=== PATIENT | female | born 1970 | race Hispanic/Latino ===

== ENCOUNTER 2017-08-23 21:22 | Inpatient (IN) | payer BC, SELFPAY ==
[~2017-08-23] VITALS: Ht 154.9 cm; Wt 144.0 kg
[2017-08-23 21:43] LABS: APPEARANCE,URINE Clear (CLEAR); BILIRUBIN,URINE Negative (NEGATIVE); COLOR,URINE Yellow (YELLOW); GLUCOSE, URINE (UA) Negative (NEGATIVE); KETONES,URINE 40 mg/dL (NEGATIVE); LEUKOCYTE ESTERASE ,URINE Negative (NEGATIVE); NITRATE,URINE Negative (NEGATIVE); OCCULT BLOOD,URINE Negative (NEGATIVE); PH,URINE 7.5 (5.0-8.0); PROTEIN,URINE Negative (NEGATIVE)
[2017-08-23 22:34] LABS: MEAN CORPUSCULAR HEMOGLOBIN 20.7 pg (27.0-33.0)
[2017-08-23 22:42] LABS: HEMATOCRIT 33.1 % (36-48); MEAN CORPUSCULAR HGB CONC 30.8 g/dL (32.0-36.0); MEAN CORPUSCULAR VOLUME 67.1 fL (79-99); PLATELET COUNT (AUTO) 405 K/uL (130-400); RED BLOOD CELL COUNT(AUTO) 4.93 MIL/uL (4.00-5.50); RED CELL DISTRIBUTION WIDTH 18.8 % (11.0-15.5)
[2017-08-23 22:43] LABS: CREATININE 0.8 mg/dL (0.5-1.5); POTASSIUM 4.2 mmol/L (3.5-5.1)
[2017-08-23 22:47] LABS: ALBUMIN 3.5 g/dL (3.5-5.0); BILIRUBIN,TOTAL 0.5 mg/dL (0.2-1.0); TOTAL PROTEIN, SERUM 8.3 g/dL (6.0-8.3)
[2017-08-23] MEDS ORDERED: ONDANSETRON HCL 4 MG/2 ML VIAL ONE (22:50)
[2017-08-23] MEDS ORDERED: HYDROMORPHONE 1 MG/1 ML AMP ONE (22:51)
[2017-08-23 23:26] LABS: BAND NEUTROPHILS % (MANUAL) 5 % (0-2); EOSINOPHILS % (MANUAL) 2 % (1-6); LYMPHOCYTES % (MANUAL) 11 % (22-44); MAN.DIFF COMMENT-IMPRESSION MANUAL DIFFERENTIAL; MONOCYTES % (MANUAL) 5 % (2-9); REACTIVE LYMPHOCYTES 3 % (0-0); SEGMENTED NEUTROPHILS % 74 % (40-70)
[2017-08-23 23:27] LABS: PLATELET MORPHOLOGY COMMENT ADEQUATE
[2017-08-24] VITALS (28 sets, daily range): BP systolic 119–181; BP diastolic 74–97
[2017-08-24] MEDS ORDERED: SODIUM CHLORIDE 0.9% 1000ML 1,000 ML IV ONE (00:45)
[2017-08-24] MEDS: SODIUM CHLORIDE 0.9% 1000ML 1,000 ML IV SCH ×3 (02:15→18:41)
[2017-08-24] MEDS ORDERED: ONDANSETRON HCL 4 MG/2 ML VIAL IVP PRN (02:15)
[2017-08-24] MEDS ORDERED: ONDANSETRON HCL 4 MG/2 ML VIAL ONE ×2 (02:17→10:09)
[2017-08-24] MEDS ORDERED: MORPHINE SULFATE 2 MG/ML 1ML SYG ONE ×3 (02:17→18:14)
[2017-08-24 04:09] LABS: HEMATOCRIT 31.7 % (36-48); MEAN CORPUSCULAR HEMOGLOBIN 20.5 pg (27.0-33.0); MEAN CORPUSCULAR HGB CONC 30.7 g/dL (32.0-36.0); MEAN CORPUSCULAR VOLUME 66.9 fL (79-99); PLATELET COUNT (AUTO) 458 K/uL (130-400); RED BLOOD CELL COUNT(AUTO) 4.74 MIL/uL (4.00-5.50); RED CELL DISTRIBUTION WIDTH 18.7 % (11.0-15.5); WHITE BLOOD COUNT (AUTO) 14.9 K/uL (4.8-10.8)
[2017-08-24 04:35] LABS: CREATININE 0.6 mg/dL (0.5-1.5)
[2017-08-24] MEDS ORDERED: LACTATED RINGERS 1000ML 1,000 ML IV ONE (09:55)
[2017-08-24] MEDS ORDERED: LIDOCAINE PF 2% 5ML ABBOJECT ONE (10:09)
[2017-08-24] MEDS ORDERED: DEXAMETHASONE SOD PHOSPHATE 10MG/ML 1ML VIAL ONE (10:09)
[2017-08-24] MEDS ORDERED: GLYCOPYRROLATE 0.2 MG/ML 5 ML VIAL ONE (10:09)
[2017-08-24] MEDS ORDERED: MIDAZOLAM HCL 1 MG/ML 2ML VIAL ONE (10:09)
[2017-08-24] MEDS ORDERED: NEOSTIGMINE METHYLSULFATE 1MG/ML IV ONE (10:09)
[2017-08-24] MEDS ORDERED: SUCCINYLCHOLINE 200MG/10ML SYR ONE (10:09)
[2017-08-24] MEDS ORDERED: FENTANYL CITRATE PF 50 MCG/1 ML 2ML VIAL ONE ×3 (10:10→12:02)
[2017-08-24] MEDS ORDERED: PROPOFOL 10 MG/ML 20ML VIAL IV ONE ×2 (10:10→13:43)
[2017-08-24] MEDS: CEFOXITIN SODIUM 2 GM VIAL ONE ×2 (11:10→11:19)
[2017-08-24] MEDS ORDERED: BUPIVACAINE/PF 0.5% 30ML VIAL ONE (11:15)
[2017-08-24] MEDS ORDERED: ROCURONIUM BROMIDE 10MG/1ML 5ML VL ONE (12:25)
[2017-08-24] MEDS ORDERED: FENTANYL CITRATE PF 50 MCG/1 ML 5ML AMP IV ONE (13:22)
[2017-08-24] MEDS ORDERED: OXYTOCIN 10 USP UNITS/ML ONE (13:43)
[2017-08-24] MEDS ORDERED: MEPERIDINE-PF 25 MG/ML SYG ONE (14:43)
[2017-08-24] MEDS ORDERED: CALDOLOR 800MG+NS 250ML 250 ML IV ONE (14:43)
[2017-08-24] MEDS: MORPHINE SULFATE 4 MG/1ML SYG IV PRN ×2 (17:04→18:42)
[2017-08-25] MEDS: SODIUM CHLORIDE 0.9% 1000ML 1,000 ML IV SCH ×3 (02:30→18:33)
[2017-08-25] MEDS ORDERED: MORPHINE SULFATE 2 MG/ML 1ML SYG ONE (03:00)
[2017-08-25 03:37] VITALS: BP 136/74
[2017-08-25 03:45] LABS: MEAN CORPUSCULAR HGB CONC 31.2 g/dL (32.0-36.0); MEAN CORPUSCULAR VOLUME 67.1 fL (79-99); PLATELET COUNT (AUTO) 391 K/uL (130-400); RED BLOOD CELL COUNT(AUTO) 4.17 MIL/uL (4.00-5.50); RED CELL DISTRIBUTION WIDTH 18.9 % (11.0-15.5)
[2017-08-25 04:16] LABS: CREATININE 0.8 mg/dL (0.5-1.5); POTASSIUM 3.9 mmol/L (3.5-5.1)
[2017-08-25 08:00] VITALS: BP 173/91
[2017-08-25] MEDS: MORPHINE SULFATE 4 MG/1ML SYG IV PRN (10:56)
[2017-08-25 11:00] VITALS: BP 145/82
[2017-08-25 16:00] VITALS: BP 176/91
[2017-08-25 20:00] VITALS: BP 147/92
[2017-08-25] MEDS: ACETAMINOPHEN-CODEINE 300/30MG TAB PO PRN (22:13)
[2017-08-26] VITALS: BP 148/76
[2017-08-26] MEDS: SODIUM CHLORIDE 0.9% 1000ML 1,000 ML IV SCH ×3 (02:04→18:38)
[2017-08-26 04:00] VITALS: BP 154/91
[2017-08-26 08:00] VITALS: BP 129/78
[2017-08-26 11:00] VITALS: BP 139/92
[2017-08-26 16:00] VITALS: BP_SYST 118; BP_SYST 133; BP_DIAS 51; BP_DIAS 85
[2017-08-26] MEDS: ACETAMINOPHEN-CODEINE 300/30MG TAB PO PRN ×2 (16:55→23:25)
[2017-08-26 20:00] VITALS: BP 142/88
[2017-08-27] VITALS: BP 150/85
[2017-08-27] MEDS: SODIUM CHLORIDE 0.9% 1000ML 1,000 ML IV SCH (01:01)
[2017-08-27 04:00] VITALS: BP 130/74
[2017-08-27 08:00] VITALS: BP 132/91
[2017-08-27 11:00] VITALS: BP 138/86
[2017-08-27 16:00] VITALS: BP 144/87
[2017-08-27] MEDS: DOCUSATE SODIUM 100 MG CAP PO SCH (19:48)
[2017-08-27 20:00] VITALS: BP 142/77
[2017-08-27] MEDS: ACETAMINOPHEN-CODEINE 300/30MG TAB PO PRN (22:17)
[2017-08-28] VITALS: BP 126/63
[2017-08-28 04:00] VITALS: BP 123/69
[2017-08-28 05:43] LABS: HEMATOCRIT 27.4 % (36-48); MEAN CORPUSCULAR HEMOGLOBIN 21.6 pg (27.0-33.0); MEAN CORPUSCULAR HGB CONC 32.2 g/dL (32.0-36.0); MEAN CORPUSCULAR VOLUME 67.3 fL (79-99); PLATELET COUNT (AUTO) 360 K/uL (130-400); RED BLOOD CELL COUNT(AUTO) 4.08 MIL/uL (4.00-5.50); RED CELL DISTRIBUTION WIDTH 18.9 % (11.0-15.5); WHITE BLOOD COUNT (AUTO) 9.5 K/uL (4.8-10.8)
[2017-08-28 05:52] LABS: CREATININE 0.6 mg/dL (0.5-1.5); POTASSIUM 3.1 mmol/L (3.5-5.1)
[2017-08-28 06:16] LABS: BAND NEUTROPHILS % (MANUAL) 8 % (0-2); BASOPHILS % (MANUAL) 2 % (0-2); EOSINOPHILS % (MANUAL) 9 % (1-6); LYMPHOCYTES % (MANUAL) 9 % (22-44); MAN.DIFF COMMENT-IMPRESSION MANUAL DIFFERENTIAL; MONOCYTES % (MANUAL) 6 % (2-9); SEGMENTED NEUTROPHILS % 66 % (40-70)
[2017-08-28 06:17] LABS: PLATELET MORPHOLOGY COMMENT ADEQUATE
[2017-08-28 08:00] VITALS: BP 136/78
[2017-08-28] MEDS: DOCUSATE SODIUM 100 MG CAP PO SCH (09:29)
[2017-08-28] MEDS: ACETAMINOPHEN-CODEINE 300/30MG TAB PO PRN (13:56)
[2017-08-28] MEDS ORDERED: BISACODYL 10 MG SUPP.RECT RC ONE (14:00)
[2017-08-28 14:07] VITALS: BP 129/86
[2017-08-28] MEDS ORDERED: MAGNESIUM CITRATE 296 ML SOLUTION PO SCH (14:30)
== END 2017-08-28 16:20 | disposition home or self-care (01) | DRG 336 ==
LOC: EDH 21:22 → EDHIP 22:47 → 3AH 08-24 01:44
PROVIDERS: ADMIT Student in an Organized Health Care Education/Training Program; ATTEND Student in an Organized Health Care Education/Training Program
PROC: 0DN80ZZ Release Small Intestine, Open Approach (ICD-10-PCS; 2017-08-24)
PROC: 0DNU0ZZ Release Omentum, Open Approach (ICD-10-PCS; 2017-08-24)
PROC: 0WQF0ZZ Repair Abdominal Wall, Open Approach (ICD-10-PCS; principal; 2017-08-24 11:27)
DX: K43.6 Other and unspecified ventral hernia with obstruction, without gangrene (principal); Z68.44 Body mass index [BMI] 60.0-69.9, adult; E66.9 Obesity, unspecified; Z90.49 Acquired absence of other specified parts of digestive tract; Z98.84 Bariatric surgery status; Z88.8 Allergy status to other drugs, medicaments and biological substances
CPT/HCPCS: 36415; 74176; 80048; 80053; 81003; 82150; 83690; 85025; 85027; 88302; 94002; C1781; J0330; J0694; J1100; J1170; J1741; J2001; J2175; J2250; J2270; J2405; J2590; J2704; J2710; J3010; J3490; J7030; J7120

== ENCOUNTER 2020-05-13 15:34 | Observation (INO) | payer BC, SELFPAY ==
[~2020-05-13] VITALS: Ht 154.9 cm; Wt 135.7 kg
[2020-05-13] MEDS ORDERED: DILTIAZEM HCL 125 MG/25 ML VIAL IV ONE (16:04)
[2020-05-13 16:05] LABS: BASOPHILS % (AUTO) 0.5 % (0.0-5.0); EOSINOPHILS % (AUTO) 1.4 % (0.0-8.0); HEMATOCRIT 33.8 % (36-48); LYMPHOCYTES % (AUTO) 27.9 % (21.0-51.0); MEAN CORPUSCULAR HEMOGLOBIN 17.9 pg (27.0-33.0); MEAN CORPUSCULAR HGB CONC 27.5 g/dL (32.0-36.0); MEAN CORPUSCULAR VOLUME 65.1 fL (79-99); MONOCYTES % (AUTO) 7.6 % (3.0-13.0); NEUTROPHILS % (AUTO) 62.3 % (40.0-77.0); PLATELET COUNT (AUTO) 587 K/uL (130-400); RED BLOOD CELL COUNT(AUTO) 5.19 MIL/uL (4.00-5.50); RED CELL DISTRIBUTION WIDTH 21.5 % (11.0-15.5); WHITE BLOOD COUNT (AUTO) 12.4 K/uL (4.8-10.8)
[2020-05-13 16:15] LABS: CREATININE 0.9 mg/dL (0.5-1.5)
[2020-05-13 16:18] LABS: INR 0.99 (0.85-1.15); PARTIAL THROMBOPLASTIN TIME 26.2 SEC (26.3-35.5); PROTHROMBIN TIME 10.7 SEC (9.6-11.6)
[2020-05-13 16:27] LABS: ALBUMIN 3.7 g/dL (3.5-5.0); BILIRUBIN,TOTAL 0.4 mg/dL (0.2-1.0); MAGNESIUM 1.9 mg/dL (1.80-2.40); THYROID STIMULATING HORMONE 1.15 uIU/mL (0.36-3.74); TOTAL PROTEIN, SERUM 8.5 g/dL (6.0-8.3)
[2020-05-13 17:13] LABS: APPEARANCE,URINE Cloudy (CLEAR); BILIRUBIN,URINE Negative (NEGATIVE); COLOR,URINE Yellow (YELLOW); GLUCOSE, URINE (UA) Negative (NEGATIVE); KETONES,URINE 15 mg/dL (NEGATIVE); LEUKOCYTE ESTERASE ,URINE Negative (NEGATIVE); NITRATE,URINE Negative (NEGATIVE); OCCULT BLOOD,URINE Negative (NEGATIVE); PROTEIN,URINE Trace mg/dL (NEGATIVE)
[2020-05-13 17:21] LABS: AMPHET/METH SCREEN,URINE NEGATIVE (NEGATIVE); BARBITURATE SCREEN, URINE NEGATIVE (NEGATIVE); BENZODIAZEPINES SCREEN,URINE NEGATIVE (NEGATIVE); CANNABINOID SCREEN,URINE NEGATIVE (NEGATIVE); COCAINE SCREEN,URINE NEGATIVE (NEGATIVE); OPIATE SCREEN,URINE NEGATIVE (NEGATIVE); PHENCYCLIDINE SCREEN,URINE NEGATIVE (NEGATIVE)
[2020-05-13 17:22] LABS: RBC,URINE 0-1 /HPF (0-1)
[2020-05-13 17:23] LABS: BACTERIA,URINE Few /HPF (None Seen)
[2020-05-13 17:24] LABS: SQUAMOUS EPITHELIAL CELL,UR Moderate /HPF (0-2)
[2020-05-13] MEDS ORDERED: DILTIAZEM HCL 125 MG/25 ML 125 MG in SODIUM CHLORIDE 0.9% 100 ML IV SCH (21:15)
[2020-05-13] MEDS: SODIUM CHLORIDE 0.9% 1000ML 1,000 ML IV SCH (21:30)
[2020-05-13] MEDS ORDERED: ACETAMINOPHEN 325 MG TAB PO PRN ×2 (21:30)
[2020-05-13] MEDS ORDERED: NITROGLYCERIN 0.4 MG SL TAB SL PRN (21:30)
[2020-05-13] MEDS ORDERED: ONDANSETRON HCL 4 MG/2 ML VIAL IV PRN (21:30)
[2020-05-13] MEDS ORDERED: DIPHENHYDRAMINE HCL 25 MG CAPSULE PO PRN (21:30)
[2020-05-13 23:01] LABS: CREATINE KINASE, TOTAL 34 U/L (21-232); MYOGLOBIN 30 ng/mL (10-92); TROPONIN I < 0.04 ng/mL (0.00-0.06)
[2020-05-14 03:22] VITALS: BP 156/88
--- NOTE | 2020-05-14 04:07 | NUR ---
ADMISSION NOTE: Pt admitted to floor via stretcher from ER. AOX4, fully awake and responsive. Ambulatory. Denies feeling of pain and discomfort. VS checked and recorded. Physical Assessment done. ( See CPOE flow chart for full assessment). Has IV site to RAC # 20 gauge with Cardizem drip at 5mg/hr via pump and NS 1L at the level of approx. 700 ml at 100 ml/hr via dial flow. Attached to TELE at bedside running afib 92. Plan of care initiated. Kept monitored and observed for any unusual changes. Pt has no home meds as verbalized. Oriented to room and use of call light. Policies and procedures explained. Agreed and verbalized understanding. No apparent distress noted. Cared for and needs attended.
[2020-05-14 04:14] LABS: HEMATOCRIT 31.5 % (36-48); MEAN CORPUSCULAR HGB CONC 28.3 g/dL (32.0-36.0); MEAN CORPUSCULAR VOLUME 63.8 fL (79-99); PLATELET COUNT (AUTO) 541 K/uL (130-400); RED BLOOD CELL COUNT(AUTO) 4.94 MIL/uL (4.00-5.50); WHITE BLOOD COUNT (AUTO) 12.3 K/uL (4.8-10.8)
[2020-05-14 04:44] LABS: ALANINE AMINOTRANSFERASE 17 U/L (12-78); ALBUMIN 3.5 g/dL (3.5-5.0); ASPARTATE AMINOTRANSFERASE 19 U/L (10-37); BILIRUBIN,TOTAL 0.5 mg/dL (0.2-1.0); CARBON DIOXIDE 25 mmol/L (21-32); CHLORIDE 103 mmol/L (101-111); CHOLESTEROL 97 mg/dL (<200); CREATINE KINASE, TOTAL 32 U/L (21-232); CREATININE 0.7 mg/dL (0.5-1.5); GLOMERULAR FILTR. RATE CALC 94 mL/min (>60); GLUCOSE,RANDOM 101 mg/dL (70-105); HDL CHOLESTEROL 35 mg/dL (35-85); LDL DIRECT 56 mg/dL (0-99); MYOGLOBIN 32 ng/mL (10-92); POTASSIUM 3.8 mmol/L (3.5-5.1); SODIUM SERUM 137 mmol/L (136-145); TOTAL PROTEIN, SERUM 8.1 g/dL (6.0-8.3); TRIGLYCERIDES 63 mg/dL (30-200); TROPONIN I < 0.04 ng/mL (0.00-0.06); UREA NITROGEN, BLOOD 15 mg/dL (7-18)
[2020-05-14 04:52] LABS: EOSINOPHILS % (MANUAL) 1 % (1-6); LYMPHOCYTES % (MANUAL) 18 % (22-44); MONOCYTES % (MANUAL) 6 % (2-9); SEGMENTED NEUTROPHILS % 75 % (40-70)
[2020-05-14 04:53] LABS: MAN.DIFF COMMENT-IMPRESSION MANUAL DIFFERENTIAL
[2020-05-14 05:59] LABS: % IRON SATURATION 4.3 % (22-44)
--- NOTE | 2020-05-14 07:40 | NUR ---
ASSESSMENT ENCOUNTERED PT A&OX3, CALM COOPERATIVE AND DOES NOT APPEAR TO BE IN ANY DISTRESS NOR ANY NEURO DEFICITS PRESENT. PT DENIES PAIN, SOB, NAUSEA. TELE MONITOR DISPLAYS ATRIAL FIBRILLATION WITH A RATE OF 80-110. PT IS AMBULATORY, GAIT STEADY AND STRONG WITH STAND BY ASSIST. CALL LIGHT WITHIN REACH.
[2020-05-14] MEDS ORDERED: METOPROLOL TARTRATE 25 MG TAB ONE (07:53)
[2020-05-14 08:00] VITALS: BP 146/75
[2020-05-14] MEDS ORDERED: POTASSIUM CHLORIDE 20 MEQ ERTAB PO SCH (08:00)
[2020-05-14] MEDS: SODIUM CHLORIDE 0.9% 1000ML 1,000 ML IV SCH (08:14)
[2020-05-14 08:50] LABS: HEMOGLOBIN A1C 5.6 % (4.0-6.0)
[2020-05-14] MEDS ORDERED: FAMOTIDINE 20MG TAB 20 MG TAB PO SCH (09:00)
[2020-05-14] MEDS ORDERED: ENOXAPARIN SODIUM 40 MG/0.4 ML SYRINGE SQ SCH (09:00)
[2020-05-14] MEDS ORDERED: METOPROLOL TARTRATE 25 MG TAB PO SCH (09:00)
[2020-05-14 12:21] VITALS: BP 122/80
[2020-05-14] MEDS ORDERED: METOPROLOL SUCCINATE 50 MG TAB.SR.24H PO ONE (13:00)
--- NOTE | 2020-05-14 14:14 | NUR ---
LIZZIE HANSEN SPOKE WITH PATIENT ([phone]). PATIENT STATES SHE LIVES AT THE ADDRESS LISTED ON FILE WITH FAMILY. PATIENT STATES SHE IS INDEPENDENT WITH ADLs, NO OTHER DME AVAILABLE AT HOME. PATIENT REQUESTS HER SISTER (LISA AMARO [phone]) BE LISTED NEXT OF KIN/ DECISION MAKER. PATIENT FEELS SAFE GOING HOME POST DC. TENTATIVE DC PLAN IS TO BE DC HOME. SISTER TO TRANSPORT HOME VIA PRIVATE VEHICLE. CM TO FOLLOW UP. Addendum: 05/14/20 at 1420 by KOBI RAMIREZ Amended: Links added.
[2020-05-14 16:00] VITALS: BP 136/86
[2020-05-14] MEDS ORDERED: METOPROLOL SUCCINATE 50 MG TAB.SR.24H PO SCH (17:00)
== END 2020-05-14 18:45 | disposition home or self-care (01) ==
LOC: EDH 15:34 → INTOOBSV 20:20 → EDHIP 20:20 → 4AH 05-14 02:33
PROVIDERS: ADMIT Internal Medicine; ATTEND Internal Medicine
DX: I48.91 Unspecified atrial fibrillation (principal); D50.9 Iron deficiency anemia, unspecified; E66.01 Morbid (severe) obesity due to excess calories; D84.9 Immunodeficiency, unspecified; I48.0 Paroxysmal atrial fibrillation; J44.9 Chronic obstructive pulmonary disease, unspecified; Z68.43 Body mass index [BMI] 50.0-59.9, adult; Z98.84 Bariatric surgery status; Z90.49 Acquired absence of other specified parts of digestive tract
CPT/HCPCS: 36415 ×2; 71045; 80053 ×2; 80061; 80305; 81001; 82270; 82550 ×3; 82728; 83036; 83540; 83550; 83735 ×2; 83874 ×2; 83880; 84443; 84484 ×3; 85025 ×2; 85610; 85730; 93005 ×3; 93306; 93356; 96360; 96361; 96372; 99291; G0378 ×5; J1650; J3490 ×2

== ENCOUNTER → 2020-09-02 | Outpatient (CLI) | payer OTHER | END | disposition home or self-care (01) | LOC: RAH 14:15 | PROVIDERS: ATTEND Internal Medicine Cardiovascular Disease | DX: Z13.6 Encounter for screening for cardiovascular disorders (principal) | CPT/HCPCS: 75571 ==

== ENCOUNTER → 2022-01-13 | Outpatient (CLI) | payer BC | END | disposition home or self-care (01) | LOC: CANPRECLI → SHCH 08:25 | PROVIDERS: ATTEND Internal Medicine Cardiovascular Disease | DX: I50.20 Unspecified systolic (congestive) heart failure (principal); E66.01 Morbid (severe) obesity due to excess calories; I50.22 Chronic systolic (congestive) heart failure | CPT/HCPCS: 93306 ==

== ENCOUNTER → 2022-03-17 | Outpatient (CLI) | payer BC | END | disposition home or self-care (01) | LOC: SHCH 08:26 | PROVIDERS: ATTEND Internal Medicine Cardiovascular Disease | DX: I87.2 Venous insufficiency (chronic) (peripheral) (principal) | CPT/HCPCS: 93970 ==

== ENCOUNTER → 2023-01-30 | Outpatient (CLI) | payer BC | END | disposition home or self-care (01) | LOC: LAB 10:27 | PROVIDERS: ATTEND Internal Medicine Cardiovascular Disease | DX: I48.0 Paroxysmal atrial fibrillation (principal) | CPT/HCPCS: 36415; 83880 ==

== ENCOUNTER → 2023-03-20 | Outpatient (CLI) | payer BC | END | disposition home or self-care (01) | LOC: SHCH 08:05 | PROVIDERS: ATTEND Internal Medicine Cardiovascular Disease | DX: I51.7 Cardiomegaly (principal); I48.0 Paroxysmal atrial fibrillation; I51.89 Other ill-defined heart diseases | CPT/HCPCS: 93306 ==

== ENCOUNTER 2025-04-18 09:19 | Day surgery (SDC) | payer BC ==
[2025-04-16 09:47] VITALS: BP 146/74; PULSE 85; RESP 14; TEMP 97.2
[2025-04-16 09:55] LABS: CREATININE 0.9 mg/dL (0.5-1.0); GLOMERULAR FILTR. RATE CALC 75.0 mL/min (>90); GLUCOSE,RANDOM 102.0 mg/dL (70-105); SODIUM SERUM 138.0 mmol/L (136-145); UREA NITROGEN, BLOOD 12.0 mg/dL (7-18)
[2025-04-16 11:48] LABS: IMMATURE GRANULOCYTE ABSOLUTE 0.07 K/uL (0-1); NUCLEATED RED BLOOD CELLS 0.0 % (0.0-0.19); PLATELET COUNT (AUTO) 330 K/uL (130-400); RED BLOOD CELL COUNT(AUTO) 4.31 MIL/uL (4.00-5.50); RED CELL DISTRIBUTION WIDTH 14.5 % (11.0-15.5); WHITE BLOOD COUNT (AUTO) 9.4 K/uL (4.8-10.8)
[~2025-04-18] VITALS: Ht 154.9 cm; Wt 144.9 kg
[~2025-04-18 09:19] MED LIST: APIX5TAB PO; DRON400T7 PO; METO-409 PO
[2025-04-18 09:55] VITALS: BP 127/75; PULSE 90; RESP 20; TEMP 97.9
--- NOTE | 2025-04-18 11:45 | EKG ---
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
[2025-04-18 12:05] VITALS: BP 131/70; PULSE 59; RESP 15; TEMP 97.7
--- NOTE | 2025-04-18 12:17 | PRN ---
Procedure Note Date of procedure: 04/18/2025 Diagnosis: Persistent atrial fibrillation Procedure: Cardioversion Physician: Konstantin Carlisle MD The patient was brought to the day patient area in a fasting state. Anesthesia was provided by the anesthesia service. Cardioversion was performed with a synchronized shock at 200 joules resulting in sinus rhythm. The patient tolerated the procedure well. Final diagnosis: Persistent atrial fibrillation, status post successful cardi oversion Disposition: The patient will be discharged later today and will follow up with me in the office in approximately two weeks. KONSTANTIN CARLISLE MD Apr 18, 2025 12:17
[2025-04-18 12:20] VITALS: BP 131/72; PULSE 58; RESP 15
[2025-04-18 12:35] VITALS: BP 124/64; PULSE 58; RESP 14
--- NOTE | 2025-04-18 12:50 | NUR ---
BOTH PT AND FRIEND GIVEN VERBAL AND WRITTEN DISCHARGE INSTRUCTIONS. IV REMOVED SITE ASYMPTOMATIC. PT TAKEN OUT VIA WHEELCHAIR FRIEND DRIVING.
[2025-04-18 12:55] VITALS: BP 134/68; PULSE 59; RESP 14
--- NOTE | 2025-04-19 16:58 | EKG ---
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
== END 2025-04-18 13:10 | disposition home or self-care (01) ==
LOC: DAH 09:19
PROVIDERS: ATTEND Internal Medicine Cardiovascular Disease
DX: I48.19 Other persistent atrial fibrillation (principal); I48.0 Paroxysmal atrial fibrillation; Z79.01 Long term (current) use of anticoagulants; Z88.6 Allergy status to analgesic agent; Z98.84 Bariatric surgery status; Z90.49 Acquired absence of other specified parts of digestive tract; Z79.899 Other long term (current) drug therapy
CPT/HCPCS: 80048; 84703; 85025; 36415; 92960; 93005 ×2; J2704; J3490; A4620; A4215; A4222; A4221; A4663; A4216; A4606; A4223 ×3

== ENCOUNTER 2025-04-28 01:38 | Emergency (ER) | payer BC ==
[~2025-04-28] VITALS: Ht 154.9 cm; Wt 142.9 kg
--- NOTE | 2025-04-28 01:58 | ERN ---
ED Note History of Present Illness Stated Complaint: ABD PAIN,NAUSEA Chief Complaint: Abdominal Pain Time Seen by MD: 01:41 Dictation: This is a 54-year-old extremely obese female who presents to the emergency room with complaints of lower abdominal pain nausea and dry mouth starting yesterday. She denied any vomitings. No fever chills or rigors. No chest pain pressure PND orthopnea. She had cardioversion on 04/18/[address] Uribe and patient reverted back to AFib on 04/22/2025. She has been on Eliquis for the atrial fibrillation. Patient stated that she had gastric bypass surgery in 2003 and lost about 100 lb however she regained all the weight over the years. She stated that she also went on GLP 1 agents and lost about 65 lb however the insurance did not cover Ozempic or Mounjaro. Temperature 98.6 pulse 104 respirations 20 blood pressure 154/101 pulse oximetry 98% on room air Allergies: Coded Allergies: aspirin (Unverified Allergy, Unknown, 08/24/17) Home Meds Active Scripts Acetaminophen with Codeine (Acetaminophen-Cod #3 Tablet) 300 Mg-30 Mg Tablet, 1 TAB PO [id number] PRN for pain for 7 Days, #14 TAB 0 Refills Prov:ESTELLA VERA MD 04/28/25 Reported Medications Apixaban (Eliquis) 5 Mg Tablet, 5 MG PO BID, TAB 04/16/25 Dronedarone Hydrochloride (Multaq) 400 Mg Tablet, 400 MG PO BID, TAB 04/16/25 Metoprolol Succinate (Metoprolol Succinate) 100 Mg Tab.er.24h, 100 MG PO BID, TAB 04/16/25 Past Medical History Past Medical History: A-Fib Surgical History: Cholecystectomy, Other, Bariatric Surgery Surgical History Other: Ventral hernia repair, gastric bypass surgery in 2003 Family History: Negative Social History: Negative History: Not Applicable RN Note Reviewed/Agreed w/PFSH: Yes Review of System Dictation Constitutional: Negative for fever,chills, and weight loss Eyes: Negative for injury, pain,redness, and discharge ENT: Negative for injury,pain or swelling Cardiovascular: Negative for chest pain, palpitations, and edema Respiratory: Negative for shortness of breath, cough, and wheezing, Abdomen/GI: Positive for abdominal pain, nausea, denied vomiting, diarrhea, and constipation Back: Negative for injury and pain : Negative for injury, bleeding and discharge MS/Extremity: Negative for injury and deformity Skin: Negative for rash, and discoloration Neuro: Negative for headache, weakness, numbness, tingling, and seizure Psych: Negative for suicide ideation, homicidal ideation, and hallucinations Initial Vital Sign VS Vital Signs Date Time Temp Pulse Resp B/P (MAP) Pulse Ox O2 Delivery O2 Flow Rate FiO2 04/28/25 01:39 96.6 104 20 154/101 97 Room Air 04/28/25 02:04 0 21 Physical Exam Dictation General: awake, alert, NAD morbidly obese with a BMI of 60 Head/Face: Normocephalic, atraumatic Eyes: PERRL, EOMI, vision at baseline ENT: oral cavity clear, TMs clear, no signs of infection Neck: Trachea midline, supple, no nuchal rigidity Cardiovascular: RRR, normal S1/S2, No MRGs, no JVD Respiratory: CTAB, no respiratory distress, No rales or wheezes Abdomen: Soft, non-tender, very obese non-distended, normal bowel sounds, no guarding or rebound. Skin: Warm, dry, normal turgor, no rash MS/Extremity: Pulses equal, no cyanosis, neurovascular intact, FROM Neuro: COAx4, GCS 15, strength 5/5, CN 2-12 intact, normal cerebellar exam, normal gait, Psych: Normal behavior, mood, and affect normal Extremities-trace edema without any palpable cords, Homans sign is negative Results (Laboratory/Radiology) Laboratory/Radiology Laboratory Tests Test 04/28/25 02:02 04/28/25 04:17 White Blood Count 15.7 K/uL (4.8-10.8) H Red Blood Count 4.51 MIL/uL (4.00-5.50) Hemoglobin 12.3 g/dL (12.0-16.0) Hematocrit 39.3 % (36-48) Mean Corpuscular Volume 87.1 fL (79-99) Mean Corpuscular Hemoglobin 27.3 pg (27.0-33.0) Mean Corpuscular Hemoglobin Concent 31.3 g/dL (32.0-36.0) L Red Cell Distribution Width 14.2 % (11.0-15.5) Platelet Count 326 K/uL (130-400) Mean Platelet Volume 9.7 fL (7.5-10.5) Immature Granulocyte % (Auto) 0.5 % (0-1) Neutrophils (%) (Auto) 84.0 % (40.0-77.0) H Lymphocytes (%) (Auto) 10.7 % (21.0-51.0) L Monocytes (%) (Auto) 4.1 % (3.0-13.0) Eosinophils (%) (Auto) 0.3 % (0.0-8.0) Basophils (%) (Auto) 0.4 % (0.0-5.0) Neutrophils # (Auto) 13.2 K/uL (1.8-7.7) H Lymphocytes # (Auto) 1.7 K/uL (1.0-4.8) Monocytes # (Auto) 0.7 K/uL (0.1-1.0) Eosinophils # (Auto) 0.05 K/uL (0.00-0.70) Basophils # (Auto) 0.06 K/uL (0.00-0.20) Absolute Immature Granulocyte (auto 0.08 K/uL (0-1) Nucleated Red Blood Cells 0.0 % (0.0-0.19) Sodium Level 138 mmol/L (136-145) Potassium Level 4.4 mmol/L (3.5-5.1) Chloride Level 102 mmol/L (101-111) Carbon Dioxide Level 27 mmol/L (21-32) Blood Urea Nitrogen 17 mg/dL (7-18) Creatinine 1.0 mg/dL (0.5-1.0) Glomerular Filtration Rate Calc 66 mL/min (>90) Random Glucose 154 mg/dL (70-105) H Total Calcium 9.2 mg/dL (8.5-10.1) Total Creatine Kinase 26 U/L (21-232) Troponin I High Sensitivity < 4.0 ng/L (4-50) L Lipase 32 U/L (16-77) Urine Color LIGHT-YELLOW (YELLOW) Urine Appearance CLEAR (CLEAR) Urine pH 6.5 (5.0-8.0) Urine Specific [place] 1.012 (1.001-1.031) Urine Protein NEGATIVE mg/dL (NEGATIVE) Urine Glucose (UA) NEGATIVE mg/dL (NEGATIVE) Urine Ketones NEGATIVE mg/dL (NEGATIVE) Urine Occult Blood NEGATIVE (NEGATIVE) Urine Nitrate NEGATIVE (NEGATIVE) Urine Bilirubin NEGATIVE mg/dL (NEGATIVE) Urine Urobilinogen 0.2 mg/dL (0.2-1.0) Urine Leukocyte Esterase NEGATIVE Raj/uL Labs Reviewed?: Yes EKG Comment: Twelve lead EKG done on 04/28/2025 at 1:42 a.m. shows a heart rate of 111, QRS 80, QT/QTC 278/379 Atrial fibrillation with a rates of around 111, overall low voltage with nonspecific ST-T changes. No acute ST-T elevations or deep ST depressions noted. EKG rhythm strip shows AFib with rates around 100-112 Interpreted by ER MD Dr. Vera CT Scan Comment: EXAM: CT Abdomen and Pelvis without IV contrast CLINICAL HISTORY: Pain. TECHNIQUE: Thin collimated axial CT images of the abdomen and pelvis were obtained, with sagittal and coronal reformatted images also submitted. A CT scan is done according to ALARA (As Low As Reasonably Achievable). CONTRAST: None. COMPARISON: CT abdomen pelvis dated 08/23/2018. FINDINGS: The included lungs are clear. 0.9 cm node around the right paracardiac region. No focal abnormality within the liver, pancreas, spleen, or adrenals. Status post cholecystectomy. Nonobstructive renal calculi bilaterally, the largest measures up to 0.7 cm around the left renal lower pole. No ureteral calculus or hydronephrosis bilaterally. Unremarkable urinary bladder. Grossly unremarkable uterus and ovaries. Small hiatus hernia. Status post gastric bypass. Uncomplicated sigmoid diverticula. Postsurgical changes in the ventral wall with questionable bowel adhesion around the umbilical area with mildly dilated proximal small bowel loops, measuring up to 3.8 cm in diameter, concerning bowel obstruction. Unremarkable appendix. Limited evaluation of the abdominal vessels due to the lack of intravenous contrast. No abdominal aortic aneurysm is evident. No pathological lymphadenopathy in the abdomen or pelvis. No ascites or pneumoperitoneum. No acute bony abnormality is evident. Degenerative osseous changes. IMPRESSIONS: Postsurgical changes in the ventral wall with questionable bowel adhesion around the umbilical area, with mildly dilated proximal small bowel loops, measuring up to 3.8 cm in diameter, concerning bowel obstruction. Recommended barium follow-through study for further evaluation. Uncomplicated sigmoid diverticula. Status post gastric bypass. Small hiatus hernia. Nonobstructive renal calculi bilaterally. Interval improvement in the previously noted umbilical hernia. The bowel dilatation is less pronounced in the present CT compared to the previous CT dated 08/23/2018. /[place] DICTATED BY: JOSS WOODY Jr., MD DATE: 04/28/25 0532 ELECTRONICALLY SIGNED BY: DATE: EXAM: CT Abdomen and Pelvis without IV contrast CLINICAL HISTORY: Pain. TECHNIQUE: Thin collimated axial CT images of the abdomen and pelvis were obtained, with sagittal and coronal reformatted images also submitted. A CT scan is done according to ALARA (As Low As Reasonably Achievable). CONTRAST: None. COMPARISON: CT abdomen pelvis dated 08/23/2018. FINDINGS: The included lungs are clear. 0.9 cm node around the right paracardiac region. No focal abnormality within the liver, pancreas, spleen, or adrenals. Status post cholecystectomy. Nonobstructive renal calculi bilaterally, the largest measures up to 0.7 cm around the left renal lower pole. No ureteral calculus or hydronephrosis bilaterally. Unremarkable urinary bladder. Grossly unremarkable uterus and ovaries. Small hiatus hernia. Status post gastric bypass. Uncomplicated sigmoid diverticula. Postsurgical changes in the ventral wall with questionable bowel adhesion around the umbilical area with mildly dilated proximal small bowel loops, measuring up to 3.8 cm in diameter, concerning bowel obstruction. Unremarkable appendix. Limited evaluation of the abdominal vessels due to the lack of intravenous contrast. No abdominal aortic aneurysm is evident. No pathological lymphadenopathy in the abdomen or pelvis. No ascites or pneumoperitoneum. No acute bony abnormality is evident. Degenerative osseous changes. IMPRESSIONS: Postsurgical changes in the ventral wall with questionable bowel adhesion around the umbilical area, with mildly dilated proximal small bowel loops, measuring up to 3.8 cm in diameter, concerning bowel obstruction. Recommended barium follow-through study for further evaluation. Uncomplicated sigmoid diverticula. Status post gastric bypass. Small hiatus hernia. Nonobstructive renal calculi bilaterally. Interval improvement in the previously noted umbilical hernia. The bowel dilatation is less pronounced in the present CT compared to the previous CT dated 08/23/2018. /[place] DICTATED BY: JOSS WOODY Jr., MD DATE: 04/28/25521 ELECTRONICALLY SIGNED BY: JOSS WOODY Jr., MD DATE: 04/28/25521 ED Course ED Course Orders Procedure Category Date Status Time Cardiac Panel LAB 04/28/25 Complete 01:52 Cbc With Differential LAB 04/28/25 Complete 01:52 Basic Metabolic Panel LAB 04/28/25 Complete 01:52 Urinalysis Profile LAB 04/28/25 Complete 01:52 Ondansetron 4mg Inj PHA 04/28/25 Complete (Zofran 4mg Inj) 02:00 Pantoprazole 40mg Inj PHA 04/28/25 Complete (Protonix 40mg Inj 02:00 Chest 1vw RAD 04/28/25 Resulted 01:52 Lipase LAB 04/28/25 Complete 01:52 Morphine 4mg Syg PHA 04/28/25 Complete (Morphine 4mg Syg) 02:00 Ct Abdomen/Pelvis W/O CT 04/28/25 Resulted Contrast 01:58 Acetaminophen 325 Tab PHA 04/28/25 Complete (Tylenol 325mg Tab 02:30 12 Lead Ekg Tracing- EKG 04/28/25 Complete Technical 04:14 Current Medications Medications (Trade) Dose Ordered Sig/[place] Route PRN Reason Start Time Stop Time Status Last Admin Dose Admin Acetaminophen (TYLenol 325MG TAB) 650 mg ONCE ONCE PO 04/28/25 02:30 04/28/25 02:31 DC 04/28/25 02:19 Morphine Sulfate (morPHINE 4MG SYG) 4 mg ONCE ONCE IVP 04/28/25 02:00 04/28/25 02:01 DC Ondansetron HCl (zoFRAN 4MG INJ) 4 mg ONCE ONCE IVP 04/28/25 02:00 04/28/25 02:01 DC 04/28/25 02:18 Pantoprazole Sodium (PROTonix 40MG INJ) 40 mg ONCE ONCE IVP 04/28/25 02:00 04/28/25 02:01 DC 04/28/25 02:18 Vital Signs Date Time Temp Pulse Resp B/P (MAP) Pulse Ox O2 Delivery O2 Flow Rate FiO2 04/28/25 04:34 93 20 153/85 100 Room Air* 0 04/28/25 02:04 96.6 104 12 157/86 96 Room Air* 0 04/28/25 01:39 96.6 104 20 154/101 97 Room Air We will perform diagnostic labs, advanced imaging and administer medications according to the patient's complaint. Once the results are available, will review and personally interpreted the labs to rule out any acute life- threatening emergency the trach require immediate intervention and treatment. I will then re-evaluate the patient after treatment and diagnostic exams have return to determine whether the patient requires any further testing, can safely be discharged home or need further admission to hospital for additional treatment and evaluation. 5:00 a.m. upon re-evaluation patient is symptom-free vital signs are stable she would like to pursue the barium study as outpatient with the primary care rosi schilling Medical Decision Making MDM Differential diagnosis: Constipation, diverticulitis, gastroenteritis, adhesions, SBO This is a 54-year-old extremely obese female who presents to the emergency room with complaints of lower abdominal pain nausea and dry mouth starting yesterday. She denied any vomitings. No fever chills or rigors. No chest pain pressure PND orthopnea. She had cardioversion on 04/18/[address] Uribe and patient reverted back to AFib on 04/22/2025. She has been on Eliquis for the atrial fibrillation. Patient stated that she had gastric bypass surgery in 2003 and lost about 100 lb however she regained all the weight over the years. She stated that she also went on GLP 1 agents and lost about 65 lb however the insurance did not cover Ozempic or Mounjaro. Temperature 98.6 pulse 104 respirations 20 blood pressure 154/101 pulse oximetry 98% on room air 4:00 a.m. Labs reviewed. CBC showed a white count of 15.7 hemoglobin 12.3 hematocrit 322. BNP 7 is with a normal limits troponins are negative lipase 32. Chest x-ray is unremarkable for any acute infiltrates. CT scan of the abdomen and pelvis is pending 5:[address] scan of the abdomen and pelvis finally reported. Postsurgical changes of gastric bypass noted, postsurgical changes of ventral hernia repair are also noted. And there was a questionable small bowel obstruction with a an adhesion. I updated the patient and her about the CT scan findings and recommendations to pursue barium swallow study. Patient stated that she felt so much better that she has had similar cramping before which usually goes away in a day and she adamantly refused to stay in the hospital and stated that she would follow up with her physician to pursue outpat ient study. I did mention to her that pain medication may mask serious complications many times which could delay the care. She stated that she felt so much better that she would return if there is any recurrence of pain. Rationale: Tests considered and ordered secondary to shared decision making include: Previous outside records reviewed: Old ER visits. Risk of complication and/or morbidity or mortality of patient management: None Medications-Per medication reconciliation Need for hospitalization: Patient does not meet criteria for hospitalization. Need for emergency major/minor surgery: No There are no social concerns with this patient. Prescription drug management Prescriptions will include symptomatic care Patient's prior external medical records from other ER visits were reviewed by me as indicated. Prior testing and results from previous visits were reviewed. Prior tests were taken into account with medical decision making and resource utilization, independent historian/historians were used to obtain complete medical history. I independently interpreted the test that were performed, results were reviewed by me and considered findings on radiology if ordered. Medical management and examination interpretation discussions were had by me with other qualified healthcare professionals as indicated for the patient's care. DX & DISP Disposition: Discharge Departure Impression: Primary Impression: SBO (small bowel obstruction) Additional Impressions: Morbid obesity with BMI of 50.0-59.9, adult, Microcytic hypochromic anemia Condition: Stable Scripts Acetaminophen with Codeine (Acetaminophen-Cod #3 Tablet) 300 Mg-30 Mg Tablet 1 TAB PO [id number] PRN for pain for 7 Days, #14 TAB 0 Refills Prov: ESTELLA VERA MD 04/28/25 Additional Instructions: Patient and the caregiver have been informed of all the diagnostic tests and the imaging conducted during the today's visit to the emergency room and has verbalized understanding of the results I have personally reviewed and interpreted all diagnostic exams performed here in the ER today as well as the vital signs documented by the nursing staff. The patient is now being discharged to home and should follow up with the primary care physician or the specialist as directed by the ER staff. Follow-up with primary care provider in 1 to 2 days. Take medications as directed here in the emergency room. Okay to continue home medications unless otherwise discussed during your visit in the emergency room today. Return to your nearest emergency room if symptoms worsen or if there is no improvement. Call 911 if you need immediate assistance. Take Tylenol or Motrin [id number] as needed and if no contraindications are present. Increase oral hydration. A wound culture or urine culture was ordered here in the emergency room department please follow-up with primary care provider and advise them to get repeat ports from our facility. If you had any Daniel wrap/splints that were applied here, please do not remove them until you see your primary care or specialty. Referrals: PEDRO LUA MD (PCP) ESTELLA VERA MD Apr 28, 2025 01:58
[2025-04-28 02:14] LABS: IMMATURE GRANULOCYTE ABSOLUTE 0.08 K/uL (0-1); NUCLEATED RED BLOOD CELLS 0.0 % (0.0-0.19); PLATELET COUNT (AUTO) 326 K/uL (130-400); RED BLOOD CELL COUNT(AUTO) 4.51 MIL/uL (4.00-5.50); RED CELL DISTRIBUTION WIDTH 14.2 % (11.0-15.5); WHITE BLOOD COUNT (AUTO) 15.7 K/uL (4.8-10.8)
[2025-04-28 02:25] LABS: CREATININE 1.0 mg/dL (0.5-1.0); GLOMERULAR FILTR. RATE CALC 66 mL/min (>90); GLUCOSE,RANDOM 154 mg/dL (70-105); SODIUM SERUM 138 mmol/L (136-145); UREA NITROGEN, BLOOD 17 mg/dL (7-18)
[2025-04-28 02:35] LABS: CREATINE KINASE, TOTAL 26 U/L (21-232)
--- NOTE | 2025-04-28 04:13 | HMCIMG ---
EXAM: CR Chest, 1 view CLINICAL HISTORY: Afebrile. COMPARISON: Chest radiograph dated 05/13/2020. FINDINGS: The lungs show no infiltrates or other acute findings. No pleural effusion or pneumothorax. The cardiomediastinal silhouette is within normal limits. No acute osseous abnormality. IMPRESSION: No acute cardiopulmonary process is evident. Compared to the prior study, there is no significant interval change. /[place]
--- NOTE | 2025-04-28 04:19 | EKG ---
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1970 Requested By: ESTELLA LAIRD Order Number: [id number] Reading MD: Caroline Georges Measurements Intervals [place] Rate: 111 P: 0 MD: 0 QRS: 8 QRSD: 80 T: 180 QT: 278 QTc: 379 Interpretive Statements Atrial fibrillation with rapid ventricular rate Low voltage, precordial leads Nonspecific T abnrm, anterolateral leads Compared to ECG 04/18/2025 11:53:09 Low QRS voltage now present Sinus bradycardia no longer present Myocardial infarct finding no longer present Electronically Signed On 04-28-2025 08:31:43 CDT by Caroline Georges Please click the below link to view image of tracing.
--- NOTE | 2025-04-28 04:23 | HMCIMG ---
EXAM: CT Abdomen and Pelvis without IV contrast CLINICAL HISTORY: Pain. TECHNIQUE: Thin collimated axial CT images of the abdomen and pelvis were obtained, with sagittal and coronal reformatted images also submitted. A CT scan is done according to ALARA (As Low As Reasonably Achievable). CONTRAST: None. COMPARISON: CT abdomen pelvis dated 08/23/2018. FINDINGS: The included lungs are clear. 0.9 cm node around the right paracardiac region. No focal abnormality within the liver, pancreas, spleen, or adrenals. Status post cholecystectomy. Nonobstructive renal calculi bilaterally, the largest measures up to 0.7 cm around the left renal lower pole. No ureteral calculus or hydronephrosis bilaterally. Unremarkable urinary bladder. Grossly unremarkable uterus and ovaries. Small hiatus hernia. Status post gastric bypass. Uncomplicated sigmoid diverticula. Postsurgical changes in the ventral wall with questionable bowel adhesion around the umbilical area with mildly dilated proximal small bowel loops, measuring up to 3.8 cm in diameter, concerning bowel obstruction. Unremarkable appendix. Limited evaluation of the abdominal vessels due to the lack of intravenous contrast. No abdominal aortic aneurysm is evident. No pathological lymphadenopathy in the abdomen or pelvis. No ascites or pneumoperitoneum. No acute bony abnormality is evident. Degenerative osseous changes. IMPRESSIONS: Postsurgical changes in the ventral wall with questionable bowel adhesion around the umbilical area, with mildly dilated proximal small bowel loops, measuring up to 3.8 cm in diameter, concerning bowel obstruction. Recommended barium follow-through study for further evaluation. Uncomplicated sigmoid diverticula. Status post gastric bypass. Small hiatus hernia. Nonobstructive renal calculi bilaterally. Interval improvement in the previously noted umbilical hernia. The bowel dilatation is less pronounced in the present CT compared to the previous CT dated 08/23/2018. /Clyde
[2025-04-28 04:33] LABS: APPEARANCE,URINE CLEAR (CLEAR); GLUCOSE, URINE (UA) NEGATIVE (NEGATIVE); LEUKOCYTE ESTERASE ,URINE NEGATIVE Leu/uL (NEGATIVE); NITRATE,URINE NEGATIVE (NEGATIVE); OCCULT BLOOD,URINE NEGATIVE (NEGATIVE)
[2025-04-28 04:36] LABS: ADD UA MICROSCOPIC NO
[2025-04-28] MEDS ORDERED: ACET-2079 PO (05:01)
[2025-04-28 05:06] VITALS: BP 130/86; PULSE 90; RESP 17; TEMP 97.3; O2SAT 100
== END 2025-04-28 05:15 | disposition home or self-care (01) ==
LOC: EDH 01:38
DX: K56.609 Unspecified intestinal obstruction, unspecified as to partial versus complete obstruction (principal); E66.01 Morbid (severe) obesity due to excess calories; D50.9 Iron deficiency anemia, unspecified; I48.91 Unspecified atrial fibrillation; Z68.43 Body mass index [BMI] 50.0-59.9, adult; Z79.01 Long term (current) use of anticoagulants; Z79.899 Other long term (current) drug therapy; Z88.6 Allergy status to analgesic agent; Z90.49 Acquired absence of other specified parts of digestive tract; Z98.84 Bariatric surgery status
CPT/HCPCS: 99284; 74176; 96374; 71045; 96375; 82550; 84484; 80048; 83690; 85025; 81003; 36415; 93005; J2405; J2470

== ENCOUNTER 2025-05-21 08:04 | Inpatient (IN) | payer BC ==
[~2025-05-21] VITALS: Ht 154.9 cm; Wt 142.7 kg
[~2025-05-21 08:04] MED LIST changes: +ACET-2079 PO
[2025-05-21 08:53] LABS: NUCLEATED RED BLOOD CELLS 0.0 % (0.0-0.19); PLATELET COUNT (AUTO) 333 K/uL (130-400); RED BLOOD CELL COUNT(AUTO) 4.51 MIL/uL (4.00-5.50); RED CELL DISTRIBUTION WIDTH 13.9 % (11.0-15.5); WHITE BLOOD COUNT (AUTO) 9.2 K/uL (4.8-10.8)
--- NOTE | 2025-05-21 09:04 | EKG ---
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
[2025-05-21 09:15] LABS: ASPARTATE AMINOTRANSFERASE 22.0 U/L (10-37); CREATININE 0.8 mg/dL (0.5-1.0); GLOMERULAR FILTR. RATE CALC 86.0 mL/min (>90); GLUCOSE,RANDOM 96.0 mg/dL (70-105); SODIUM SERUM 140.0 mmol/L (136-145); TOTAL PROTEIN, SERUM 7.3 g/dL (6.0-8.3); UREA NITROGEN, BLOOD 13.0 mg/dL (7-18)
[2025-05-21 11:42] LABS: EOSINOPHILS % (MANUAL) 2 % (1-6); LYMPHOCYTES % (MANUAL) 31 % (22-44); MONOCYTES % (MANUAL) 5 % (2-9); REACTIVE LYMPHOCYTES 1 % (0-0); SEGMENTED NEUTROPHILS % 61 % (40-70)
[2025-05-21 11:44] LABS: MAN.DIFF COMMENT-IMPRESSION MANUAL DIFFERENTIAL; PLATELET MORPHOLOGY COMMENT ADEQUATE
--- NOTE | 2025-05-21 16:27 | NUR ---
DCP: HOME Pt currently lives with her sister Shawanda Arellano [phone]. Pt does not have DME, home health, or provider services. pt states that she is able to complete ADLs independently. PCP is Dr. Dubon and uses [facility] for any RX needs. At [place] pt will want to go home and family can assist with transportation. Addendum: 05/21/25 at 1630 by JARED PACHECO SS Amended: Links added.
[2025-05-22] VITALS (11 sets, daily range): BP systolic 111–164; BP diastolic 77–89; PULSE 86–108; RESP 18–20; TEMP 97.5–98.3; O2SAT 98–100
--- NOTE | 2025-05-22 00:59 | NUR ---
report given to marlena grace
--- NOTE | 2025-05-22 01:00 | NUR ---
ADMISSION PATIENT RECEIVED. ORIENTED PATIENT TO ROOM AND CALL LIGHT. BED PLACED IN LOWEST POSITION AND LOCKED. PATIENT AWAKE AND ORIENTED TO SELF, TIME, PLACE AND SITUATION.
[2025-05-22] MEDS: DOFETILIDE 250 MCG CAPSULE PO ONE (13:00)
--- NOTE | 2025-05-22 16:16 | EKG ---
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
[2025-05-23] VITALS (8 sets, daily range): BP systolic 120–141; BP diastolic 64–76; PULSE 58–93; RESP 16–18; TEMP 97.4–98.1; O2SAT 98–99
[2025-05-23] MEDS: DOFETILIDE 250 MCG CAPSULE PO ONE ×2 (00:36→10:00)
--- NOTE | 2025-05-23 09:08 | EKG ---
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
--- NOTE | 2025-05-23 09:34 | EKG ---
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
--- NOTE | 2025-05-23 10:35 | NUR ---
TAISHA FROM THE [facility] CALLED ME AND STATED THAT PATIENT HAVING EPISODES OF BRADYCARDIA, WITH HEART RATE IN THE 40'S TO LOW 50'S. I OBSERVED PATIENT WHO VOICED NO COMPLAINTS OF PAIN, DIZZINESS, FATIGUE, SYNCOPE, AND WAS SITTING COMFORTABLY IN CHAIR WITH CHAIR ALARM SET. I EXPLAINED TO HER THAT HER HEART RATE IS CURRENTLY LOW BUT BEING MONITORED CONTINUOUSLY. BLOOD PRESSURE EVALUATED: 128/75MMHG, PULSE AT BEDSIDE IS NOW 59-61, AND OXYGEN SATURATION IS 98% ON ROOM AIR. I ASSISTED HER TO BED AND PLACED BED ALARM ON. I HAD HER REPEAT BACK SIGNS AND SYMPTOMS OF BRADYCARDIA AND INSTRUCTED HER TO CALL STAFF FOR ASSISTANCE OR IF ANY OF THE AFOREMENTIONED SIGNS/SYMPTOMS OCCUR. SHE VOICED UNDERSTANDING AND ABLE TO REPEAT BACK ALL TEACHING. CALL IBANEZ PLACED ON RIGHT SIDE AND NEXT TO RIGHT HAND AND SHE SHOWED ME HOW TO USE IT SUCCESSFULLY.
--- NOTE | 2025-05-23 10:45 | NUR ---
I RE-EVALUATED PATIENT AGAIN. VOICES NO S/S OF BRADYCARDIA ( DISCUSSED IN PREVIOUS NOTE: REFER TO THAT) SHE STATES "I FEEL FINE AND I AM GLAD WE ARE HOLDING OFF ON THAT MEDICATION, I WOULD NOT HAVE FELT RIGHT TAKING IT." NURSE WILL CONTINUE TO MONITOR AND FOLLOW UP ON PATIENT'S STATUS.
--- NOTE | 2025-05-23 11:00 | NUR ---
AFTER SPEAKING WITH [facility] MONITORING SOFTWARE ARCHITECT, AMPARO SUMNERBRIANNE'S HEART RATE CURRENTLY IN THE LOW 50'S. I RE-EVALUATED PATIENT AGAIN. VOICES NO S/S OF BRADYCARDIA ( DISCUSSED IN PREVIOUS NOTE: REFER TO THAT) SHE STATES "I FEEL FINE AND I AM GLAD WE ARE HOLDING OFF ON THAT MEDICATION, I WOULD NOT HAVE FELT RIGHT TAKING IT." NURSE WILL CONTINUE TO MONITOR AND FOLLOW UP ON PATIENT'S STATUS: SEE NURSING OBSERVATIONS'S FLOWSHEET.
--- NOTE | 2025-05-23 13:30 | NUR ---
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 I SHOWED HIM THE PATIENT'S EKG AND TELEMETRY STRIPS. I QUESTIONED THE DOFETILIDE ORDER THAT HAD BEEN PLACED TO WHETHER HE FELT IT SHOULD BE GIVEN, AND HE STATED "NO HOLD OFF ON THAT MEDICATION. I WILL PUT AN ORDER IN" I NOTIFIED PATIENT OF THIS AND SHE AGREED TO PLAN OF CARE SHE WAS "CONCERNED ABOUT HER HEART RATE BEING LOW". I EDUCATED HER ON S/S OF BRADYCARDIA THAT SHE SHOULD IMMEDIATELY REPORT IMMEDIATELY TO STAFF: FATIGUE, WEAKNESS, DIZZINESS, SHORTNESS OF BREATH, DIFFICULTY CONCENTRATING, CONFUSION, NEAR FAINTING OR FAINTING EPISODES, DIAPHORESIS, PALLOR, AND CHEST PAIN OR OTHER DISCOMFORT. VOICED UNDERSTANDING AND WAS ABLE TO REPEAT BACK ALL SIGNS/SYMPTOMS, NURSE WILL CONTINUE TO REINFORCE ALL PATIENT TEACHING. I FURTHER INSTRUCTED HER ON HIGH RISK FOR FALLS DUE TO BRADYCARDIA AND BEING ON HIGH RISK MEDICATIONS SUCH LOPRESSOR: KEEP AREAS WELL LIT, BED ALARM TO REMAIN SET, CALL STAFF FOR ASSISTANCE IN GETTING OUT OF BED, CHANGE POSITIONS SLOWLY TO AVOID SYNCOPE. PATIENT HAS CALL LIGHT ON RIGHT SIDE (IN RIGHT HAND) AND VOICED UNDERSTANDING TO ALL TEACHING; NURSE WILL CONTINUE TO REINFORCE ALL PATIENT TEACHING AND EDUCATION.
--- NOTE | 2025-05-23 15:00 | NUR ---
AFTER SPEAKING WITH [facility] MONITORING DENTAL FINANCIAL COORDINATOR, AMPARO SUMNERBRIANNE'S HEART RATE CURRENTLY IN THE LOW 50'S. I RE-EVALUATED PATIENT AGAIN. VOICES NO S/S OF BRADYCARDIA ( DISCUSSED IN PREVIOUS NOTE: REFER TO THAT) SHE STATES "I FEEL FINE AND I AM GLAD WE ARE HOLDING OFF ON THAT MEDICATION, I WOULD NOT HAVE FELT RIGHT TAKING IT." NURSE WILL CONTINUE TO MONITOR AND FOLLOW UP ON PATIENT'S STATUS: SEE NURSING OBSERVATIONS'S FLOWSHEET.
--- NOTE | 2025-05-23 15:15 | EKG ---
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
--- NOTE | 2025-05-23 15:31 | PN ---
[facility] CARDIAC ELECTROPHYSIOLOGY PROGRESS NOTE Date Patient Seen: May 23, 2025 Time of Visit: 15:21 Interval History: The patient was admitted for monitored administration of dofetilide for persistent atrial fibrillation, followed by cardioversion. She was started on 250 mcg q.12 hours and her QT interval has been normal to very mildly prolonged. He is tolerating the medication well. Unfortunately, she did not received her 1st dose until 12:30 on the day of admission. She received her 2nd dose at 12:30 a.m.. I have been compressing her dosing schedule so that she can be discharged with a reasonable q.12 hours s regimen. She received her 3rd dose at 10:00 a.m. and will receive her 4th dose at 9:00 p.m.. Her dosage will likely remain at 250 mcg q.12 hours. This has already been sent to the pharmacy in his available for the patient to pickling grader. Early this morning, the patient converted to sinus rhythm. This was followed by 5.2 seconds conversion pause but her sinus rate was normal subsequently. She did have two episodes of bradycardia when in the 40s and one in the 50s and were minimally symptomatic. Otherwise, she remains in normal sinus rhythm. She will receive her 5th and final dose of monitored dofetilide at 9:00 a.m. with plans to check another EKG at 11:00 a.m. and will likely be able to be discharged home tomorrow. Physical Examination: Neck: No JVD Lungs: Clear Heart: Regular with no murmurs Extremities: Without edema. Impression: Persistent atrial fibrillation, now converted to sinus rhythm on dofetilide. Plan: 1. The patient will receive dofetilide 250 mcg at 9:00 a.m.. 2. An EKG will be done at 11:00 a.m.. 3. I have requested that the nurse send me the EKG for consistency of QT measurements and I will also likely send a discharge order. 4. Follow up in the office with me in two weeks. ANTHONY CARLISLE MD May 23, 2025 15:31
--- NOTE | 2025-05-23 18:30 | NUR ---
AFTER SPEAKING WITH [facility] SALES DEVELOPMENT EXECUTIVE, AMPARO SUMNERBRIANNE'S HEART RATE CURRENTLY IN THE LOW 50'S. I RE-EVALUATED PATIENT AGAIN. VOICES NO S/S OF BRADYCARDIA ( DISCUSSED IN PREVIOUS NOTE: REFER TO THAT) SHE STATES "I FEEL FINE AND I AM GLAD WE ARE HOLDING OFF ON THAT MEDICATION, I WOULD NOT HAVE FELT RIGHT TAKING IT." NURSE WILL CONTINUE TO MONITOR AND FOLLOW UP ON PATIENT'S STATUS: SEE NURSING OBSERVATIONS'S FLOWSHEET.
[2025-05-23] MEDS ORDERED: DOFETILIDE 250 MCG CAPSULE PO SCH (21:00)
[2025-05-24] VITALS (8 sets, daily range): BP systolic 123–152; BP diastolic 58–80; PULSE 53–72; RESP 16–18; TEMP 97.8–98.2; O2SAT 99
--- NOTE | 2025-05-24 09:26 | NUR ---
NOTE REACHED OUT TO DR. CARLISLE TO CLARIFY THE MEDICATION DOFETILIDE 250MCG. ORDERS RECEIVED FOR 250MCG DOSE PO(SEE EMAR). ALSO TO ORDER AN EKG 1 HOUR AFTER DOSE. AND TO CALL HIM WITH THE RESULTS.
--- NOTE | 2025-05-24 11:40 | PN ---
[facility] CARDIOLOGY PROGRESS NOTE Date Patient Seen: May 24, 2025 Time of Visit: 11:34 Interval History: The patient was admitted for monitored administration of dofetilide for persistent atrial fibrillation, followed by cardioversion. She was started on 250 mcg q.12 hours and her QT interval has been normal to very mildly prolonged. He is tolerating the medication well. Unfortunately, she did not received her 1st dose until 12:30 on the day of admission. She received her 2nd dose at 12:30 a.m.. I have been compressing her dosing schedule so that she can be discharged with a reasonable q.12 hours s regimen. She received her 3rd dose at 10:00 a.m. and will receive her 4th dose at 9:00 p.m.. Her dosage will likely remain at 250 mcg q.12 hours. This has already been sent to the pharmacy in his available for the patient to bead picker. Early this morning, the patient converted to sinus rhythm. T Physical Examination: Neck: No JVD Lungs: Clear Heart: Regular with no murmurs Extremities: Without edema. Laboratory: [ ] Diagnostics / Radiology: [Copy/Paste Echos/Imaging Report here] Impression: Persistent atrial fibrillation, now converted to sinus rhythm on dofetilide. Plan: 1. Patient will be discharged with dofetilide 250 mcg q12h and metoprolol succinate 100 mg bid I will sign off. He may be discharged. Patient can Follow up in the office with Dr Uribe in two weeks. MOSES PUENTE MD May 24, 2025 11:40
[2025-05-24] MEDS: DOFETILIDE 250 MCG CAPSULE PO ONE ×2 (11:51→20:55)
--- NOTE | 2025-05-24 12:33 | EKG ---
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
--- NOTE | 2025-05-24 12:34 | EKG ---
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
--- NOTE | 2025-05-24 12:45 | NUR ---
NOTE BEDSIDE ROUNDS MADE WITH DR. Sabas PUENTE. THE PATIENT AND DAUGHTER AT SIDE. WE REVIEWED THE CURRENT MEDICATION DOFETILIDE 250MCG AND THE NUMBER OF TIMES IT HAS BEEN GIVEN. DR. Erik PUENTE CALLED DR. CARLISLE AND DISCUSSED THE PLAN OF CARE IN DETAIL. ORDERS FOR 2 MORE DOSES OF DOFETILIDE 250MCG TO BE GIVEN ORDERED IN EMAR. FOR 900PM TONIGHT AND 0900AM TOMORROW, BOTH FOLLOWED WITH AN EKG 1 HOUR AFTER DOES GIVEN. ORDERS PLACED IN EMR.
--- NOTE | 2025-05-24 22:00 | NUR ---
EKG RESULT REPORTED TO CHALINO PUENTE MD, AT THIS TIME, PER HER RECOMMENDATION, OK TO GIVE NEXT SCHEDULED DOSE OF DOFETILIDE ON 05/25/25 @ 0900 WILL CONT TO MONITOR
--- NOTE | 2025-05-25 01:01 | EKG ---
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: [id number] : 1970 Requested By: MOSES HARMON Order Number: [id number] Reading MD: Agustin Harmon Measurements Intervals [place] Rate: 62 P: 44 CT: 163 QRS: 14 QRSD: 91 T: 19 QT: 477 QTc: 469 Interpretive Statements Sinus rhythm Atrial premature complexes Low voltage, precordial leads Compared to ECG 05/24/2025 12:35:08 Atrial premature complex(es) now present Low QRS voltage now present Sinus bradycardia no longer present Sinus arrhythmia no longer present Myocardial infarct finding no longer present Electronically Signed On 05-25-2025 12:50:49 CDT by Agustin Harmon Please click the below link to view image of tracing.
[2025-05-25 03:26] VITALS: BP 134/70; PULSE 64; RESP 18; TEMP 98.6
[2025-05-25 03:40] LABS: IMMATURE GRANULOCYTE ABSOLUTE 0.05 K/uL (0-1); NUCLEATED RED BLOOD CELLS 0.0 % (0.0-0.19); PLATELET COUNT (AUTO) 292 K/uL (130-400); RED BLOOD CELL COUNT(AUTO) 4.00 MIL/uL (4.00-5.50); RED CELL DISTRIBUTION WIDTH 13.9 % (11.0-15.5); WHITE BLOOD COUNT (AUTO) 10.3 K/uL (4.8-10.8)
[2025-05-25 04:12] LABS: CREATININE 0.9 mg/dL (0.5-1.0); GLOMERULAR FILTR. RATE CALC 75.0 mL/min (>90); GLUCOSE,RANDOM 92.0 mg/dL (70-105); SODIUM SERUM 141.0 mmol/L (136-145); UREA NITROGEN, BLOOD 19.0 mg/dL (7-18)
[2025-05-25 07:00] VITALS: BP 131/71; PULSE 62; RESP 16; TEMP 98.1
[2025-05-25 08:00] VITALS: O2SAT 98
[2025-05-25] MEDS: DOFETILIDE 250 MCG CAPSULE PO ONE (09:03)
[2025-05-25 11:00] VITALS: BP 129/72; PULSE 56; RESP 17; TEMP 98.2
--- NOTE | 2025-05-25 11:08 | PN ---
[facility] CARDIOLOGY PROGRESS NOTE Date Patient Seen: May 25, 2025 Time of Visit: 11:07 Interval History: The patient was admitted for monitored administration of dofetilide for persistent atrial fibrillation, followed by cardioversion. She was started on 250 mcg q.12 hours and her QT interval has been normal to very mildly prolonged. He is tolerating the medication well. Unfortunately, she did not received her 1st dose until 12:30 on the day of admission. She received her 2nd dose at 12:30 a.m.. I have been compressing her dosing schedule so that she can be discharged with a reasonable q.12 hours s regimen. She received her 3rd dose at 10:00 a.m. and will receive her 4th dose at 9:00 p.m.. Her dosage will likely remain at 250 mcg q.12 hours. This has already been sent to the pharmacy in his available for the patient to warehouse order picker. Early this morning, the patient converted to sinus rhythm. T Physical Examination: Neck: No JVD Lungs: Clear Heart: Regular with no murmurs Extremities: Without edema. Laboratory: [ ] Hematology Labs: Test 05/25/25 02:59 Range/Units White Blood Count 10.3 4.8-10.8 K/uL Red Blood Count 4.00 4.00-5.50 MIL/uL Hemoglobin 10.6 L 12.0-16.0 g/dL Hematocrit 33.2 L 36-48 % Mean Corpuscular Volume 83.0 79-99 fL Mean Corpuscular Hemoglobin 26.5 L 27.0-33.0 pg Mean Corpuscular Hemoglobin Concent 31.9 L 32.0-36.0 g/dL Red Cell Distribution Width 13.9 11.0-15.5 % Platelet Count 292 130-400 K/uL Mean Platelet Volume 10.2 7.5-10.5 fL Immature Granulocyte % (Auto) 0.5 0-1 % Neutrophils (%) (Auto) 61.6 40.0-77.0 % Lymphocytes (%) (Auto) 26.0 21.0-51.0 % Monocytes (%) (Auto) 9.2 3.0-13.0 % Eosinophils (%) (Auto) 2.2 0.0-8.0 % Basophils (%) (Auto) 0.5 0.0-5.0 % Neutrophils # (Auto) 6.3 1.8-7.7 K/uL Lymphocytes # (Auto) 2.7 1.0-4.8 K/uL Monocytes # (Auto) 1.0 0.1-1.0 K/uL Eosinophils # (Auto) 0.23 0.00-0.70 K/uL Basophils # (Auto) 0.05 0.00-0.20 K/uL Absolute Immature Granulocyte (auto 0.05 0-1 K/uL Nucleated Red Blood Cells 0.0 0.0-0.19 % Chemistry Labs: Test 05/25/25 02:59 Range/Units Sodium Level 141 136-145 mmol/L Potassium Level 3.9 3.5-5.1 mmol/L Chloride Level 105 101-111 mmol/L Carbon Dioxide Level 27 21-32 mmol/L Blood Urea Nitrogen 19 H 7-18 mg/dL Creatinine 0.9 0.5-1.0 mg/dL Glomerular Filtration Rate Calc 75 >90 mL/min Random Glucose 92 70-105 mg/dL Total Calcium 8.6 8.5-10.1 mg/dL Diagnostics / Radiology: [Copy/Paste Echos/Imaging Report here] Impression: Persistent atrial fibrillation, now converted to sinus rhythm on dofetilide. Plan: 1. Patient will be discharged with dofetilide 250 mcg q12h and metoprolol succinate 50 mg bid I will sign off. She may be discharged. Patient can Follow up in the office with Dr Uribe in two weeks. MOSES PUENTE MD May 25, 2025 11:08
--- NOTE | 2025-05-25 11:35 | EKG ---
[facility] Test Date: 2025-05-25 Test Time: 10:33:17 Pat Name: RAJEEV AMARO Department: [facility] Room: 220 1 Gender: F Hostess: [id number] : 1970 Requested By: MOSES HARMON Order Number: [id number] Reading MD: Agustin Harmon Measurements Intervals [place] Rate: 52 P: 47 [place]: 146 QRS: 6 QRSD: 100 T: 5 QT: 471 QTc: 437 Interpretive Statements Sinus rhythm Low voltage, precordial leads Compared to ECG 05/24/2025 21:53:12 Atrial premature complex(es) no longer present Electronically Signed On 05-25-2025 12:52:11 CDT by Agustin Harmon Please click the below link to view image of tracing.
[2025-05-25] MEDS ORDERED: METO-391 PO ×2 (14:08→14:09)
--- NOTE | 2025-05-25 14:56 | NUR ---
DISCHARGE NOTE DISCHARGE INSTRUCTIONS GIVEN TO PATIENT. SHE STATED UNDERSTANDING. ALL QUESTIONS ANSWERED. Patient will be discharged with dofetilide 250 mcg q12h and metoprolol succinate 50 mg bid- PRESCRIPTIONS READY FOR CIVIL MANAGER AT [facility]- PT AWARE. Patient can Follow up in the office with Dr Uribe in two weeks
== END 2025-05-25 16:30 | disposition home or self-care (01) | DRG 310 ==
LOC: EDH 08:04 → DIRECT 08:05 → OBSVTOIN 08:05 → 2DH 05-22 01:18
PROVIDERS: ADMIT Internal Medicine Cardiovascular Disease; ATTEND Internal Medicine Cardiovascular Disease
DX: I48.19 Other persistent atrial fibrillation (principal)
CPT/HCPCS: 36415; 80048; 80053; 83735; 84443; 85025; 93005; G0378